=== PATIENT | female | born 2000 | race Caucasian/White ===

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

== ENCOUNTER → 2018-01-30 | Outpatient (CLI) | payer OTHER | END | disposition home or self-care (01) | LOC: LAB EV 13:57 → LAB SHORT 13:57 | DX: R30.0 Dysuria (principal) | CPT/HCPCS: 87086 ==

== ENCOUNTER 2019-06-19 04:46 | Emergency (ER) | payer OTHER ==
[~2019-06-19] VITALS: Ht 172.7 cm; Wt 59.0 kg
== END 2019-06-19 06:21 | disposition home or self-care (01) ==
LOC: ER 04:46
DX: J06.9 Acute upper respiratory infection, unspecified (principal); K12.2 Cellulitis and abscess of mouth
CPT/HCPCS: 99282; J1100